=== PATIENT | female | born 1970 | race Caucasian/White ===

== ENCOUNTER 2020-08-08 08:20 | Inpatient (IN) | payer OTHER ==
[2020-08-08] MEDS ORDERED: ONDANSETRON 4 MG/2 ML VIAL ONE (09:13)
[2020-08-08] MEDS ORDERED: NA CHLORIDE 0.9% 500 ML ONE (09:13)
[2020-08-08] MEDS ORDERED: FAMOTIDINE 20 MG/2 ML VIAL IV ONE (09:14)
--- NOTE | 2020-08-08 09:25 | RAD REPORT ---
EXAM DESCRIPTION: RAD - Chest Single View - 08/08/2020 9:16 am CLINICAL HISTORY: DYSPNEA COMPARISON: None TECHNIQUE: AP portable chest image was obtained 08/08/2020 9:16 am . FINDINGS: No focal mass or consolidations seen. Interstitial fibrotic stranding is seen in each apex . No mass density at this time. No acute infiltrate. No failure or volume overload. Heart and vascula ture are normal. No measurable pleural effusion and no pneumothorax. No acute bony abnormality seen. No acute aortic findings suspected. IMPRESSION: Fibro emphysematous changes are present in the upper lung vivas, advanced for age. No mass, consolidation or failure.
[2020-08-08] MEDS ORDERED: THIAMINE 200 MG/2 ML INJ ONE (09:35)
[2020-08-08 09:44] LABS: Absolute Lymphocytes (CBC) 0.8 K/uL (0.7-4.9); Basophils % 0.6 % (0-1.3); Lymphocytes % 7.9 % (15.3-44.8); MPV 8.8 fL (7.6-11.3); RBC Red Blood Cell Count 3.89 M/uL (3.86-4.86)
[2020-08-08 10:04] LABS: ALT/SGPT 112 U/L (12-78); AST/SGOT 111 U/L (15-37); Albumin 3.5 g/dL (3.4-5.0); Alkaline Phosphatase 85 U/L (45-117); BUN Blood Urea Nitrogen 7 mg/dL (7-18); Bicarbonate 24 mmol/L (21-32); Bilirubin Direct 0.6 mg/dL (0-0.2); Bilirubin Total 1.5 mg/dL (0.2-1.0); Glucose Level 86 mg/dL (74-106); Lipase 11210 U/L (73-393); Magnesium 2.2 mg/dL (1.8-2.4); NT PRO-BNP 143 pg/mL (<125); Protein, Total 7.7 g/dL (6.4-8.2); Sodium Level 128 mmol/L (136-145); Troponin (Emerg Dept Use Only) < 0.02 ng/mL (0.0-0.045)
[2020-08-08 10:05] LABS: Potassium 2.1 mmol/L (3.5-5.1)
--- NOTE | 2020-08-08 10:18 | ER ---
Nurse's Notes [facility] Name: Marisa Mancilla Age: 50 yrs Sex: Female : 1970 Arrival Date: 08/08/2020 Time: 08:25 Bed 17 Private MD: Diagnosis: Acute pancreatitis;Abdominal tenderness;Alcohol abuse;Hypokalemia-hypophosphatemia Presentation: 08/08 08:26 Chief complaint: EMS states: N/V AND SOB x3 DAYS. Coronavirus screen: congestion, bp difficulty breathing, nausea, vomiting. Client presents with at least one sign or symptom that may indicate coronavirus-19. Standard/surgical mask placed on the client. Provider contacted for isolation considerations. Ebola Screen: No symptoms or risks identified at this time. Initial Sepsis Screen: Does the patient meet any 2 criteria? HR > 90 bpm. No. Patient's initial sepsis screen is negative. Does the patient have a suspected source of infection? No. Patient's initial sepsis screen is negative. Risk Assessment: Do you want to hurt yourself or someone else? Patient reports no desire to harm self or others. Onset of symptoms is unknown. Care prior to arrival: Medication(s) given: zofran 4 mg, IV initiated. 20 GA, in the right antecubital area, Glucose check: 114. 08:26 Method Of Arrival: EMS: [facility] bp 08:26 Acuity: DANIA 3 bp Triage Assessment: 08:28 General: Appears in no apparent distress. comfortable, Behavior is cooperative, bp appropriate for age, anxious. Pain: Denies pain. EENT: Reports nasal congestion. Neuro: Level of Consciousness is awake, alert, obeys commands, Oriented to person, place, time, situation, Appropriate for age. Cardiovascular: Rhythm is sinus rhythm. Respiratory: Reports shortness of breath cough that is productive, Breath sounds are clear bilaterally. GI: Abdomen is non-distended, Reports nausea, vomiting. : No signs and/or symptoms were reported regarding the genitourinary system. Derm: No deficits noted. Musculoskeletal: No deficits noted. Historical: - Allergies: 08:28 No Known Allergies; bp - Home Meds: 08:28 None [Active]; bp - PMHx: 08:28 None; bp - Immunization history:: Adult Immunizations unknown. - Social history:: Smoking status: Patient reports the use of cigarette tobacco products, smokes two packs cigarettes per day. - Family history:: not pertinent. Screenin:29 Abuse screen: Denies threats or abuse. Denies injuries from another. Nutritional bp screening: No deficits noted. Tuberculosis screening: No symptoms or risk factors identified. Fall Risk None identified. Assessment: 08:29 General: SEE TRIAGE NOTE. GI: Bowel sounds present X 4 quads. Reports nausea, vomiting. bp 09:15 Reassessment: Patient appears in no apparent distress at this time. Patient is alert, bp oriented x 3, equal unlabored respirations, skin warm/dry/pink. ALL CURRENT ORDERS COMPLETED. NO ACTIVE VOMITING. VS STABLE ON MONITOR. 09:15 GI: Abd is soft X 4 quads. bp 10:42 Reassessment: Patient appears in no apparent distress at this time. Patient is alert, bp oriented x 3, equal unlabored respirations, skin warm/dry/pink. PT RETURNED FROM CT. PT INCONTINENT TO URINE, STATES THIS IS RECENT BASELINE. 12:00 Reassessment: Patient appears in no apparent distress at this time. Patient and/or bp family updated on plan of care and expected duration. Pain level reassessed. Patient is alert, oriented x 3, equal unlabored respirations, skin warm/dry/pink. ADMIT MD AT B/S. 13:00 Reassessment: Patient appears in no apparent distress at this time. Patient and/or bp family updated on plan of care and expected duration. Pain level reassessed. Patient is alert, oriented x 3, equal unlabored respirations, skin warm/dry/pink. LAB CONTACTED FOR COVID RESULTS. ADMIT IN PROCESS. 14:15 Reassessment: ADMIT COMPLETE, PT [place] WITH PCT. bp Vital Signs: 08:26 BP 133 / 88; Pulse 100; Resp 17; Temp 97.5; Pulse Ox 99% ; bp 09:15 BP 125 / 91; Pulse 101; Resp 16; Pulse Ox 97% ; bp 10:42 BP 119 / 87; Pulse 103; Resp 17; Pulse Ox 100% on R/A; bp 13:00 BP 108 / 84; Pulse 95; Resp 17; Pulse Ox 100% ; bp 14:00 BP 104 / 77 Standing; Pulse 88; Resp 16; Temp 97.5; Pulse Ox 95% ; bp ED Course: 08:25 Patient arrived in ED. bp 08:27 Sathish Fontanez MD is Attending Physician. jade 08:27 Triage completed. bp 08:28 Arm band placed on. bp 08:29 Patient has correct armband on for positive identification. Bed in low position. Call bp light in reach. Side rails up X2. 08:29 Maintain EMS IV. Dressing intact. Good blood return noted. Site clean \T\ dry. Gauge \T\ bp site: 20 GAUGE R AC. 08:31 Misha Todd RN is Primary Nurse. bp 09:10 EKG done, by ED staff, reviewed by Sathish Fontanez MD. em1 09:16 XRAY Chest (1 view) In Process Unspecified. EDMS 10:15 Karoline Simmons MD is Hospitalizing Provider. jade 10:34 CT Abd/Pelvis - IV Contrast Only In Process Unspecified. EDMS 14:16 No provider procedures requiring assistance completed. Patient admitted, IV remains in bp place. Administered Medications: 09:00 Not Given (Duplicate Order): NS 0.9% 500 ml IV at bolus once jade 09:05 Drug: Thiamine 100 mg Route: IV; Rate: bolus; Site: right antecubital; bp 13:22 Follow up: IV Status: Completed infusion; IV Intake: 100ml bp 09:05 Drug: Zofran (Ondansetron) 4 mg Route: IVP; Site: right antecubital; bp 09:32 Follow up: Response: Nausea is decreased bp 09:05 Drug: NS 0.9% 1000 ml Route: IV; Rate: 1 bolus; Site: right antecubital; bp 13:23 Follow up: IV Status: Completed infusion bp 09:05 Drug: Pepcid 20 mg Route: IVP; Site: right antecubital; bp 09:32 Follow up: Response: Nausea is decreased bp 10:45 Drug: NS 0.9% 1000 ml Route: IV; Rate: 1 bolus; Site: right antecubital; bp 13:22 Follow up: IV Status: Completed infusion; IV Intake: 1000ml bp 10:45 Drug: Potassium Chloride 20 mEq Route: IV; Rate: per protocol; Site: right antecubital; bp 13:23 Follow up: IV Status: Completed infusion; IV Intake: 100ml bp 10:45 Drug: NS 0.9% with KCl 20 mEq/L 1000 ml Route: IV; Rate: 150 ml/hr; Site: right bp antecubital; 12:45 Drug: Potassium Chloride 20 mEq Route: IV; Rate: per protocol; Site: right antecubital; bp 13:11 Drug: Potassium Phosphate 15 mmol Route: IV; Rate: per protocol; Site: right bp antecubital; Intake: 13:22 IV: 1000ml; Total: 1000ml. bp 13:22 IV: 100ml; Total: 1100ml. bp 13:23 IV: 100ml; Total: 1200ml. bp Outcome: 10:17 Decision to Hospitalize by Provider. jade 14:17 Admitted to Tele accompanied by tech, via wheelchair, room 228, with chart, Report bp called to DEANA ARAIZA 14:17 Condition: stable 14:17 Instructed on the need for admit. 14:29 Patient left the ED. iw Signatures: Dispatcher [employer] Sathish Vasquez MD MD cha Williams, Irene, RN RN Jonathon Briones Misha Yang, RN RN bp
--- NOTE | 2020-08-08 10:18 | EDPHYS ---
Physician Documentation [facility] Name: Marisa Mancilla Age: 50 yrs Sex: Female : 1970 Arrival Date: 08/08/2020 Time: 08:25 Bed 17 Private MD: DUONG Physician Sathish Fontanez HPI: 08/08 09:00 This 50 yrs old Female presents to ER via EMS with complaints of jade Nausea/Vomiting, Shortness Of Breath. 09:00 The patient presents to the emergency department with nausea, vomiting, that is jade continuous. Onset: The symptoms/episode began/occurred 2 day(s) ago. Possible causes: unknown. The symptoms are aggravated by nothing. The symptoms are alleviated by nothing. Associated signs and symptoms: Pertinent positives: abdominal pain, nausea, vomiting. Severity of symptoms: At their worst the symptoms were mild in the emergency department the symptoms are unchanged. The patient has experienced similar episodes in the past, a few times. Historical: - Allergies: 08:28 No Known Allergies; bp - Home Meds: 08:28 None [Active]; bp - PMHx: 08:28 None; bp - Immunization history:: Adult Immunizations unknown. - Social history:: Smoking status: Patient reports the use of cigarette tobacco products, smokes two packs cigarettes per day. - Family history:: not pertinent. ROS: 09:00 Constitutional: Negative for fever, chills, and weight loss, Eyes: Negative for injury, jade pain, redness, and discharge, ENT: Negative for injury, pain, and discharge, Neck: Negative for injury, pain, and swelling, Cardiovascular: Negative for chest pain, palpitations, and edema, Back: Negative for injury and pain, : Negative for injury, bleeding, discharge, and swelling, MS/Extremity: Negative for injury and deformity, Skin: Negative for injury, rash, and discoloration, Neuro: Negative for headache, weakness, numbness, tingling, and seizure, Psych: Negative for depression, anxiety, suicide ideation, homicidal ideation, and hallucinations, Allergy/Immunology: Negative for hives, rash, and allergies, Endocrine: Negative for neck swelling, polydipsia, polyuria, polyphagia, and marked weight changes, Hematologic/Lymphatic: Negative for swollen nodes, abnormal bleeding, and unusual bruising. 09:00 Respiratory: Positive for cough, shortness of breath. 09:00 Abdomen/GI: Positive for abdominal pain, nausea and vomiting, abdominal cramps, of the epigastric area, right upper quadrant and left upper quadrant. Exam: 09:00 Constitutional: This is a well developed, well nourished patient who is awake, alert, jade and in no acute distress. Head/Face: Normocephalic, atraumatic. Eyes: Pupils equal round and reactive to light, extra-ocular motions intact. Lids and lashes normal. Conjunctiva and sclera are non-icteric and not injected. Cornea within normal limits. Periorbital areas with no swelling, redness, or edema. ENT: Nares patent. No nasal discharge, no septal abnormalities noted. Tympanic membranes are normal and external auditory canals are clear. Oropharynx with no redness, swelling, or masses, exudates, or evidence of obstruction, uvula midline. Mucous membranes moist. Neck: Trachea midline, no thyromegaly or masses palpated, and no cervical lymphadenopathy. Supple, full range of motion without nuchal rigidity, or vertebral point tenderness. No Meningismus. Chest/axilla: Normal chest wall appearance and motion. Nontender with no deformity. No lesions are appreciated. Cardiovascular: Regular rate and rhythm with a normal S1 and S2. No gallops, murmurs, or rubs. Normal PMI, no JVD. No pulse deficits. Respiratory: Lungs have equal breath sounds bilaterally, clear to auscultation and percussion. No rales, rhonchi or wheezes noted. No increased work of breathing, no retractions or nasal flaring. Back: No spinal tenderness. No costovertebral tenderness. Full range of motion. Female : Normal external genitalia. Skin: Warm, dry with normal turgor. Normal color with no rashes, no lesions, and no evidence of cellulitis. MS/ Extremity: Pulses equal, no cyanosis. Neurovascular intact. Full, normal range of motion. Neuro: Awake and alert, GCS 15, oriented to person, place, time, and situation. Cranial nerves II-XII grossly intact. Motor strength 5/5 in all extremities. Sensory grossly intact. Cerebellar exam normal. Normal gait. Psych: Awake, alert, with orientation to person, place and time. Behavior, mood, and affect are within normal limits. 09:00 Abdomen/GI: Inspection: abdomen appears normal, Bowel sounds: normal, Palpation: mild abdominal tenderness, in the epigastric area, right upper quadrant and left upper quadrant, Liver: no appreciated palpable abnormalities, Hernia: not appreciated. 10:18 ECG was reviewed by the Attending Physician. jade Vital Signs: 08:26 BP 133 / 88; Pulse 100; Resp 17; Temp 97.5; Pulse Ox 99% ; bp 09:15 BP 125 / 91; Pulse 101; Resp 16; Pulse Ox 97% ; bp 10:42 BP 119 / 87; Pulse 103; Resp 17; Pulse Ox 100% on R/A; bp 13:00 BP 108 / 84; Pulse 95; Resp 17; Pulse Ox 100% ; bp 14:00 BP 104 / 77 Standing; Pulse 88; Resp 16; Temp 97.5; Pulse Ox 95% ; bp MDM: 08:27 Patient medically screened. jade 09:02 Differential diagnosis: Nonspecific abd pain, gastritis, cholecystitis, pancreatitis, jade viral gastroenteritis, gastroenteritis. Data reviewed: vital signs, nurses notes, lab test result(s), EKG, radiologic studies, plain films. Data interpreted: security monitor: rate is 100 beats/min, Pulse oximetry: on room air is 99 %. Test interpretation: by ED physician or midlevel provider: ECG, plain radiologic studies. Counseling: I had a detailed discussion with the patient and/or guardian regarding: the historical points, exam findings, and any diagnostic results supporting the discharge/admit diagnosis, lab results, radiology results, the need for outpatient follow up. 08/08 08:55 Order name: Basic Metabolic Panel; Complete Time: 10:06 jade 08/08 08:55 Order name: CBC with Diff; Complete Time: 10:49 jade 08/08 08:55 Order name: LFT's; Complete Time: 10:06 jade 08/08 08:55 Order name: Magnesium; Complete Time: 10:06 jade 08/08 08:55 Order name: NT PRO-BNP; Complete Time: 10:06 jade 08/08 08:55 Order name: Troponin (emerg Dept Use Only); Complete Time: 10:06 jade 08/08 08:55 Order name: Flu; Complete Time: 10:49 jade 08/08 08:55 Order name: COVID-19 jade 08/08 09:01 Order name: Lipase; Complete Time: 10:06 EDMS 08/08 09:12 Order name: Alcohol Level; Complete Time: 10:06 [facility] 08/08 09:12 Order name: UDS; Complete Time: 10:49 [facility] 08/08 10:08 Order name: Phosphorus [facility] 08/08 11:25 Order name: Urine Dipstick--Ancillary (enter results) bd 08/08 11:32 Order name: Urinalysis EDMS 08/08 11:32 Order name: CBC with Automated Diff EDMS 08/08 11:32 Order name: CBC with Automated Diff EDMS 08/08 11:32 Order name: Comprehensive Metabolic Panel EDMS 08/08 11:32 Order name: Comprehensive Metabolic Panel EDMS 08/08 11:32 Order name: Lactate EDMS 08/08 11:32 Order name: Lactate EDMS 08/08 11:32 Order name: Lipid Profile EDMS 08/08 11:32 Order name: Lipid Profile EDMS 08/08 11:32 Order name: Magnesium EDMS 08/08 11:32 Order name: Magnesium EDMS 08/08 11:32 Order name: NT PRO-BNP EDMS 08/08 11:32 Order name: NT PRO-BNP EDMS 08/08 11:32 Order name: Phosphorus EDMS 08/08 11:32 Order name: Phosphorus EDMS 08/08 08:55 Order name: XRAY Chest (1 view); Complete Time: 10:06 [facility] 08/08 08:55 Order name: EKG; Complete Time: 08:56 [facility] 08/08 08:55 Order name: Cardiac monitoring; Complete Time: 09:11 [facility] 08/08 08:55 Order name: EKG - Nurse/Tech; Complete Time: 09:10 [facility] 08/08 08:55 Order name: IV Saline Lock; Complete Time: 09:10 [facility] 08/08 08:55 Order name: Labs collected and sent; Complete Time: 09:10 [facility] 08/08 08:55 Order name: O2 Per Protocol; Complete Time: 08:56 [facility] 08/08 08:55 Order name: O2 Sat Monitoring; Complete Time: 08:56 [facility] 08/08 10:08 Order name: CT Abd/Pelvis - IV Contrast Only; Complete Time: 10:49 [facility] 08/08 11:32 Order name: NPO EDAZ 08/08 11:32 Order name: Protime (+INR) EDAZ 08/08 11:32 Order name: Protime (+INR) EDMS 08/08 11:32 Order name: PTT, Activated Partial Thromb EDMS 08/08 11:32 Order name: PTT, Activated Partial Thromb EDMS 08/08 11:53 Order name: CORONAVIRUS EDMS 08/08 13:26 Order name: SARS-COV-2 RT PCR EDMS EC:18 Rate is 104 beats/min. Rhythm is regular. QRS [place] is Normal. CA interval is normal. jade QRS interval is normal. QT interval is normal. No Q waves. T waves are Normal. No ST changes noted. Clinical impression: Sinus tachycardia and No evidence of ischemia. Interpreted by me. Reviewed by me. Administered Medications: 09:00 Not Given (Duplicate Order): NS 0.9% 500 ml IV at bolus once jade 09:05 Drug: Thiamine 100 mg Route: IV; Rate: bolus; Site: right antecubital; bp 13:22 Follow up: IV Status: Completed infusion; IV Intake: 100ml bp 09:05 Drug: Zofran (Ondansetron) 4 mg Route: IVP; Site: right antecubital; bp 09:32 Follow up: Response: Nausea is decreased bp 09:05 Drug: NS 0.9% 1000 ml Route: IV; Rate: 1 bolus; Site: right antecubital; bp 13:23 Follow up: IV Status: Completed infusion bp 09:05 Drug: Pepcid 20 mg Route: IVP; Site: right antecubital; bp 09:32 Follow up: Response: Nausea is decreased bp 10:45 Drug: NS 0.9% 1000 ml Route: IV; Rate: 1 bolus; Site: right antecubital; bp 13:22 Follow up: IV Status: Completed infusion; IV Intake: 1000ml bp 10:45 Drug: Potassium Chloride 20 mEq Route: IV; Rate: per protocol; Site: right antecubital; bp 13:23 Follow up: IV Status: Completed infusion; IV Intake: 100ml bp 10:45 Drug: NS 0.9% with KCl 20 mEq/L 1000 ml Route: IV; Rate: 150 ml/hr; Site: right bp antecubital; 12:45 Drug: Potassium Chloride 20 mEq Route: IV; Rate: per protocol; Site: right antecubital; bp 13:11 Drug: Potassium Phosphate 15 mmol Route: IV; Rate: per protocol; Site: right bp antecubital; Disposition: 08/08/20 10:17 Hospitalization ordered by Karoline Simmons for Inpatient Admission. Preliminary diagnosis are Acute pancreatitis, Abdominal tenderness, Alcohol abuse, Hypokalemia - hypophosphatemia. - Bed requested for Telemetry/MedSurg (Inpatient). - Status is Inpatient Admission. iw - Condition is Stable. - Problem is new. - Symptoms are unchanged. Signatures: Dispatcher [employer] EDAZ Renita Sanchez RN RN kl Anderson, Corey, MD MD cha Williams, Irene, RN RN iw Peltier, Brian, RN RN bp Corrections: (The following items were deleted from the chart) 09:02 08:58 LIPASE+C.LAB.BRZ ordered. EDAZ EDMS 09:02 09:00 LIPASE+C.LAB.BRZ ordered. [facility] EDAZ 11:06 10:17 Hospitalization Ordered by Karolien Simmons MD for Inpatient Admission. Preliminary jade diagnosis is Acute pancreatitis; Abdominal tenderness; Alcohol abuse; Hypokalemia. Bed requested for Telemetry/MedSurg (Inpatient). Status is Inpatient Admission. Condition is Stable. Problem is new. Symptoms are unchanged. jade 13:32 11:06 08/08/2020 10:17 Hospitalization Ordered by Karoline Simmons MD for Inpatient kl Admission. Preliminary diagnosis is Acute pancreatitis; Abdominal tenderness; Alcohol abuse; Hypokalemia - hypophosphatemia. Bed requested for Telemetry/MedSurg (Inpatient). Status is Inpatient Admission. Condition is Stable. Problem is new. Symptoms are unchanged. jade 14:29 13:32 08/08/2020 10:17 Hospitalization Ordered by Karoline Simmons MD for Inpatient iw Admission. Preliminary diagnosis is Acute pancreatitis; Abdominal tenderness; Alcohol abuse; Hypokalemia - hypophosphatemia. Bed requested for Telemetry/MedSurg (Inpatient). Status is Inpatient Admission. Condition is Stable. Problem is new. Symptoms are unchanged. kl
--- NOTE | 2020-08-08 10:42 | RAD REPORT ---
EXAM DESCRIPTION: CT - Abdomen Pelvis W Contrast - 08/08/2020 10:34 am CLINICAL HISTORY: ABD PAIN COMPARISON: No comparisons TECHNIQUE: Biphasic, helical CT imaging of the abdomen and pelvis was performed following 100 ml non -ionic IV contrast. No oral contrast. All CT scans are performed using dose optimization technique as appropriate and may include automated exposure control or mA/KV adjustment according to patient size. FINDINGS: No suspicious findings in the lung bases. Pronounced fatty infiltration is present throughout the liver parenchyma. No focal liver lesion. No c apsular nodularity. No portal vein abnormality seen. Spleen and pancreas show no suspicious findings. Pancreatic parenchyma is homogeneous in attenuation and enhancement. Cholecystectomy clips are present. No biliary tree dilatation. Symmetric renal function is seen with no hydronephrosis or suspicious renal mass. No pyelonephritis o r acute parenchymal process. Urinary bladder is fully contracted. No evidence for a bladder stone. Ut erus and ovaries show no suspicious findings. There is laxity or prolapse along the pelvic floor. No adrenal abnormalities. No dilated bowel loops or bowel wall thickening. Appendix is normal. Left-sided colonic diverticulosi s is minimal with no diverticulitis. No active bowel process seen. No free air, free fluid or inflammatory stranding. No hernia, mass or bulky lymphadenopathy. No suspicious bony findings. Moderate severity degenerative change present at the L5-S1 facet joints. No acute vascular finding. IMPRESSION: Contrast enhanced CT abdomen and pelvis showing no acute or emergent finding. Nonacute findings detailed in the body of the report.
[2020-08-08 10:45] LABS: Barbiturates NEGATIVE (NEGATIVE); Benzodiazepines NEGATIVE (NEGATIVE); Cocaine NEGATIVE (NEGATIVE); METHAMPHETAM NEGATIVE (NEGATIVE); Methadone NEGATIVE (NEGATIVE); Opiates NEGATIVE (NEGATIVE); Phencyclidine NEGATIVE (NEGATIVE); THC Cannibis NEGATIVE (NEGATIVE)
[2020-08-08] MEDS ORDERED: KCL 20 MEQ/100 mL IVPB 20 MEQ/100 ML BAG IV ONE (10:50)
[2020-08-08] MEDS ORDERED: POTASSIUM 25 MEQ EFFERV TAB ONE (10:50)
[2020-08-08] MEDS ORDERED: NS KCL 20MEQ 1,000 ML IV ONE (10:50)
[2020-08-08] MEDS ORDERED: NA CHLORIDE 0.9% 1,000 ML ONE (11:02)
--- NOTE | 2020-08-08 11:27 | EKG ---
Test Date: 2020-08-08 Test Time: 09:10:02 Lay Out Helper: DOMENICA MEASUREMENT RESULTS: Intervals: Rate: 104 UT: 142 QRSD: 86 QT: 368 QTc: 483 [place]: P: 61 UT: 142 QRS: 68 T: 63 INTERPRETIVE STATEMENTS: Sinus tachycardia Otherwise normal ECG No previous ECG available for comparison Electronically Signed On 08-08-20 11:26:56 CDT by Vinicio Everett
[2020-08-08] MEDS ORDERED: ONDANSETRON 4 MG/2 ML VIAL IV PRN (11:28)
[2020-08-08] MEDS ORDERED: ACETAMINOPHEN 500 MG TAB PO PRN (11:28)
[2020-08-08] MEDS ORDERED: POTASSIUM PHOS IN 0.9 % NACL 15 MMOL/250 ML BAG IV ONE ×2 (11:30→21:00)
[2020-08-08 11:32] LABS: Urine Blood TRACE (NEG); Urine Glucose NEGATIVE (NEG); Urine Protein NEGATIVE (NEG)
[2020-08-08] MEDS ORDERED: NA CHLORIDE 0.9% 1,000 ML IV SCH (12:00)
[2020-08-08] MEDS: MORPHINE 4 MG/ML SYR IV PRN ×4 (12:00→23:34)
[2020-08-08] MEDS: NA CHLORIDE 0.9% 1,000 ML IV SCH ×4 (14:54→23:25)
[2020-08-08 15:08] VITALS: BMI 20.3
[2020-08-08 20:17] LABS: Phosphorus 0.7 mg/dL (2.5-4.9)
[2020-08-08] MEDS ORDERED: NICOTINE 21 MG/PAT TD PRN (22:00)
[2020-08-09] MEDS: MORPHINE 4 MG/ML SYR IV PRN ×5 (03:35→20:30)
[2020-08-09 05:29] LABS: Absolute Lymphocytes (CBC) 0.9 K/uL (0.7-4.9); Basophils % 0.5 % (0-1.3); Hematocrit 31.3 % (36.0-45.0); Lymphocytes % 11.2 % (15.3-44.8); MPV 8.1 fL (7.6-11.3); RBC Red Blood Cell Count 3.48 M/uL (3.86-4.86)
[2020-08-09 05:33] LABS: Protime INR 0.98
[2020-08-09] MEDS: NA CHLORIDE 0.9% 1,000 ML IV SCH ×4 (05:34→20:33)
[2020-08-09 05:48] LABS: ALT/SGPT 83 U/L (12-78); AST/SGOT 95 U/L (15-37); Albumin 2.7 g/dL (3.4-5.0); Alkaline Phosphatase 66 U/L (45-117); BUN Blood Urea Nitrogen 6 mg/dL (7-18); Bicarbonate 26 mmol/L (21-32); Bilirubin Total 0.9 mg/dL (0.2-1.0); Glucose Level 72 mg/dL (74-106); HDL Cholesterol 41 mg/dL (40-60); LDL Cholesterol, Calculated 56 (<130); Magnesium 1.8 mg/dL (1.8-2.4); NT PRO-BNP 585 pg/mL (<125); Phosphorus 1.5 mg/dL (2.5-4.9); Protein, Total 6.2 g/dL (6.4-8.2); Sodium Level 139 mmol/L (136-145)
[2020-08-09 05:52] LABS: Potassium 2.6 mmol/L (3.5-5.1)
[2020-08-09] MEDS: KCL 20 MEQ/100 mL IVPB 20 MEQ/100 ML BAG IV SCH ×4 (06:10→22:20)
[2020-08-09] MEDS: ENOXAPARIN 40 MG/0.4 ML SQ SCH (08:01)
[2020-08-09] MEDS: FOLIC ACID 1 MG, MULTIVITAMINS INJ 10 ML, THIAMINE HCL 100 MG in NA CHLORIDE 0.9% 1,000 ML IV SCH (08:01)
[2020-08-09 08:14] LABS: Urine Appearance CLEAR; Urine Blood NEGATIVE (NEG); Urine Color YELLOW; Urine Glucose NEGATIVE (NEG); Urine Protein NEGATIVE (NEG)
[2020-08-09 08:21] LABS: Urine Bilirubin 1+ (NEG); Urine Microscopic Reflex NO UMIC
[2020-08-09 09:00] LABS: Lipase 19749 U/L (73-393)
--- NOTE | 2020-08-09 09:00 | P.HP ---
Certification for Inpatient Patient admitted to: Inpatient With expected LOS: >2 Midnights Patient will require the following post-hospital care: None Practitioner: I am a practitioner with admitting privileges, knowledge of patient current condition, hospital course, and medical plan of care. Services: Services provided to patient in accordance with Admission requirements found in Title 42 Section 412.3 of the Code of Federal Regulations Patient History Date of Service: 08/08/20 Reason for admission: Acute alcoholic pancreatitis History of Present Illness: Patient is a 50-year-old female who states she has been drinking quite heavily over the last few months. She has had a lot of stressors in her life and this contributed to her increased alcohol use. She noticed she was having significant pain over the last 48 hr. Her pain continued to worsen so she came to the hospital for further evaluation. In the emergency room, workup revealed significantly elevated lipase level. CT scan finding did really show a lot of inflammation in the pancreas at this time. Concern is that it will progress. We will admit the patient because of her significantly elevated lipase level for inpatient setting. Will also monitor her for delirium tremens. Patient will be admitted to the hospital for further evaluation. Allergies No Known Allergies Allergy (Unverified 08/08/20 15:19) Home Medications: NK [No Home Meds] 08/08/20 - Past Medical/Surgical History Has patient received pneumonia vaccine in the past: No Diabetic: No -: Cholesystectomy -: Left wrist sx with Matal plate -: Left foot sx with metal cody - Family History Father Family History: Reviewed- Non-Contributory - Social History Smoking Status: Current every day smoker Alcohol use: Yes CD- Drugs: No Caffeine use: No Place of Residence: Home Review of Systems 10-point ROS is otherwise unremarkable Physical Examination - Vital Signs Temperature: 97.7 F Blood Pressure: 99/60 Pulse: 92 Respirations: 16 Pulse Ox (%): 95 - Physical Exam General: Alert, In no apparent distress, Oriented x3 HEENT: Atraumatic, PERRLA, Mucous membr. moist/pink, EOMI, Sclerae nonicteric Neck: Supple, 2+ carotid pulse no bruit, No LAD, Without JVD or thyroid abnormality Respiratory: Clear to auscultation bilaterally, Normal air movement Cardiovascular: Regular rate/rhythm, Normal S1 S2, No murmurs Gastrointestinal: Normal bowel sounds, Soft and benign, Non-distended, Tenderness, Rebound, Guarding Musculoskeletal: No clubbing, No swelling, No tenderness Integumentary: No rashes Neurological: Normal gait, Normal speech, Normal strength at 5/5 x4 extr, Normal tone, Sensation intact, Cranial nerves 3-12 intact, Normal affect Lymphatics: No axilla or inguinal lymphadenopathy - Studies Laboratory Data (last 24 hrs) 08/08/20 10:20: Phosphorus 0.9 L* 08/08/20 09:10: WBC 10.2, Hgb 12.7, Hct 35.0 L, Plt Count 218 08/08/20 09:10: Sodium 128 L, Potassium 2.1 L*, BUN 7, Creatinine 0.75, Glucose 86, Magnesium 2.2, Total Bilirubin 1.5 H, AST 111 H, ALT 112 H, Alkaline Phosphatase 85, Lipase 09698 H 08/08/20 08:59: Lipase Cancelled 08/08/20 08:57: Lipase Cancelled Microbiology Data (last 24 hrs): 08/08/20 09:10 Nasopharnyx Influenza Type A Antigen Screen - Final 08/08/20 09:10 Nasopharnyx Influenza Type B Antigen Screen - Final Assessment & Plan - Problems (Diagnosis) (1) Acute alcoholic pancreatitis Current Visit: Yes Status: Acute (2) Hypokalemia Current Visit: Yes Status: Acute (3) Hypophosphatemia Current Visit: Yes Status: Acute - Plan Plan: 1. IV fluids 2. Pain control 3. PPI 4. Monitor for DTs 5. NPO 6. Repeat lipase levels as well as repeat electrolytes 7. Banana bag x1 L daily 8. GI and DVT prophylaxis Discharge Plan: Home Plan to discharge in: Greater than 2 days - Advance Directives Does patient have a Living Will: No Does patient have a Durable POA for Healthcare: No - Code Status/Comfort Care Code Status Assessed: Yes Code Status: Full Code Critical Care: No Time Spent Managing PTS Care (In Minutes): 45
--- NOTE | 2020-08-09 09:01 | P.PN ---
Subjective Date of Service: 08/09/20 Subjective: No new changes, No C/O voiced, Improving Her abdomen is slightly more distended today. She still is having some epigastric tenderness. No nausea and vomiting. Will check a lipase level and start clear liquid diet today if is improved. Otherwise will start ice chips. Review of Systems 10-point ROS is otherwise unremarkable Physical Examination - Vital Signs Temperature: 97.7 F Blood Pressure: 99/60 Pulse: 92 Respirations: 16 Pulse Ox (%): 95 - Physical Exam General: Alert, In no apparent distress, Oriented x3 HEENT: Atraumatic, PERRLA, EOMI Neck: Supple, JVD not distended Respiratory: Clear to auscultation bilaterally, Normal air movement Cardiovascular: Regular rate/rhythm, Normal S1 S2 Gastrointestinal: Normal bowel sounds, No tenderness Musculoskeletal: No tenderness Integumentary: No rashes Neurological: Normal speech, Normal tone, Normal affect Lymphatics: No axilla or inguinal lymphadenopathy - Studies Laboratory Data (last 24 hrs) 08/08/20 10:20: Phosphorus 0.9 L* 08/08/20 09:10: WBC 10.2, Hgb 12.7, Hct 35.0 L, Plt Count 218 08/08/20 09:10: Sodium 128 L, Potassium 2.1 L*, BUN 7, Creatinine 0.75, Glucose 86, Magnesium 2.2, Total Bilirubin 1.5 H, AST 111 H, ALT 112 H, Alkaline Phosphatase 85, Lipase 10340 H 08/08/20 08:59: Lipase Cancelled 08/08/20 08:57: Lipase Cancelled Microbiology Data (last 24 hrs): 08/08/20 09:10 Nasopharnyx Influenza Type A Antigen Screen - Final 08/08/20 09:10 Nasopharnyx Influenza Type B Antigen Screen - Final Medications List Reviewed: Yes Assessment & Plan - Problems (Diagnosis) (1) Acute alcoholic pancreatitis Current Visit: Yes Status: Acute (2) Hypokalemia Current Visit: Yes Status: Acute (3) Hypophosphatemia Current Visit: Yes Status: Acute - Plan Plan: 1. Continue with IV fluids 2. Continue with Pain control 3. Continue with PPI twice a day 4. Monitor for DTs; continue with Librium 5. Start ice chips and then clear liquids if lipase continues to improve 6. Repeat lipase was elevated this morning but it has decreased; start ice chips 7. Banana bag x1 L daily 8. GI and DVT prophylaxis Discharge Plan: Home Plan to discharge in: Greater than 2 days - Advance Directives Does patient have a Living Will: No Does patient have a Durable POA for Healthcare: No - Code Status/Comfort Care Code Status: Full Code Critical Care: No Time Spent Managing PTS Care (In Minutes): 35
[2020-08-09] MEDS ORDERED: POTASSIUM PHOS IN 0.9 % NACL 15 MMOL/250 ML BAG IV ONE (11:00)
[2020-08-09] MEDS: chlordiazePOXIDE HCl 5 MG CAP PO SCH ×3 (14:38→23:24)
[2020-08-09 15:26] LABS: Absolute Lymphocytes (CBC) 1.3 K/uL (0.7-4.9); Basophils % 0.7 % (0-1.3); Hematocrit 29.7 % (36.0-45.0); Lymphocytes % 16.8 % (15.3-44.8); MPV 7.7 fL (7.6-11.3); RBC Red Blood Cell Count 3.29 M/uL (3.86-4.86)
[2020-08-09 15:54] LABS: BUN Blood Urea Nitrogen 5 mg/dL (7-18); Bicarbonate 26 mmol/L (21-32); Glucose Level 76 mg/dL (74-106); Lipase 10000 U/L (73-393); Magnesium 2.2 mg/dL (1.8-2.4); Phosphorus 2.3 mg/dL (2.5-4.9); Potassium 3.1 mmol/L (3.5-5.1); Sodium Level 138 mmol/L (136-145)
[2020-08-09] MEDS ORDERED: MAGNESIUM SULFATE 1 gm IVPB 1 GM/100 ML BAG IV ONE (16:00)
[2020-08-09] MEDS ORDERED: NICOTINE 21 MG/PAT TD ONE (21:00)
[2020-08-10] MEDS: MORPHINE 4 MG/ML SYR IV PRN ×4 (00:49→15:39)
[2020-08-10] MEDS: NA CHLORIDE 0.9% 1,000 ML IV SCH ×5 (03:05→22:14)
[2020-08-10] MEDS: chlordiazePOXIDE HCl 5 MG CAP PO SCH ×4 (05:00→23:16)
[2020-08-10 06:20] LABS: BUN Blood Urea Nitrogen 4 mg/dL (7-18); Bicarbonate 25 mmol/L (21-32); Glucose Level 67 mg/dL (74-106); Lipase 4466 U/L (73-393); Magnesium 1.8 mg/dL (1.8-2.4); Phosphorus 1.9 mg/dL (2.5-4.9); Sodium Level 135 mmol/L (136-145)
[2020-08-10 06:23] LABS: Potassium 2.8 mmol/L (3.5-5.1)
[2020-08-10] MEDS: KCL 20 MEQ/100 mL IVPB 20 MEQ/100 ML BAG IV SCH ×4 (06:40→22:15)
--- NOTE | 2020-08-10 07:50 | P.PN ---
Subjective Date of Service: 08/10/20 Patient continues to slightly improved. No new complaints. Physical Examination - Vital Signs Temperature: 97.7 F Blood Pressure: 99/60 Pulse: 92 Respirations: 16 Pulse Ox (%): 95 - Physical Exam General: Alert, In no apparent distress, Oriented x3 Respiratory: Clear to auscultation bilaterally, Normal air movement Cardiovascular: Regular rate/rhythm, Normal S1 S2 Gastrointestinal: Normal bowel sounds, Soft and benign, Distended, Tenderness Musculoskeletal: No clubbing, No swelling - Studies Medications List Reviewed: Yes Assessment & Plan - Problems (Diagnosis) (1) Acute alcoholic pancreatitis Current Visit: Yes Status: Acute (2) Hypokalemia Current Visit: Yes Status: Acute (3) Hypophosphatemia Current Visit: Yes Status: Acute - Plan Plan: Continue with plan of care as mentioned below: 1. Continue with IV fluids 2. Continue with Pain control 3. Continue with PPI 4. Monitor for DTs; continue with Librium 5. Advance diet if pain continues to improve and lipase is stable 6. GI and DVT prophylaxis Discharge Plan: Home Plan to discharge in: 48 Hours - Advance Directives Does patient have a Living Will: No Does patient have a Durable POA for Healthcare: No - Code Status/Comfort Care Code Status: Full Code Critical Care: No Time Spent Managing PTS Care (In Minutes): 35
[2020-08-10] MEDS: FOLIC ACID 1 MG, MULTIVITAMINS INJ 10 ML, THIAMINE HCL 100 MG in NA CHLORIDE 0.9% 1,000 ML IV SCH (08:42)
[2020-08-10] MEDS: ENOXAPARIN 40 MG/0.4 ML SQ SCH (08:42)
[2020-08-10] MEDS ORDERED: POTASSIUM PHOS IN 0.9 % NACL 15 MMOL/250 ML BAG IV ONE (11:00)
[2020-08-10] MEDS ORDERED: MAGNESIUM SULFATE 1 gm IVPB 1 GM/100 ML BAG IV ONE (15:00)
[2020-08-11] MEDS: NA CHLORIDE 0.9% 1,000 ML IV SCH ×3 (05:38→20:35)
[2020-08-11] MEDS: chlordiazePOXIDE HCl 5 MG CAP PO SCH ×4 (05:39→23:40)
[2020-08-11 06:40] LABS: BUN Blood Urea Nitrogen 2 mg/dL (7-18); Bicarbonate 25 mmol/L (21-32); Glucose Level 87 mg/dL (74-106); Magnesium 2.2 mg/dL (1.8-2.4); Potassium 3.5 mmol/L (3.5-5.1); Sodium Level 140 mmol/L (136-145)
[2020-08-11] MEDS ORDERED: POTASSIUM PHOS IN 0.9 % NACL 15 MMOL/250 ML BAG IV ONE (08:00)
[2020-08-11] MEDS: FOLIC ACID 1 MG, MULTIVITAMINS INJ 10 ML, THIAMINE HCL 100 MG in NA CHLORIDE 0.9% 1,000 ML IV SCH (09:34)
[2020-08-11] MEDS: ENOXAPARIN 40 MG/0.4 ML SQ SCH (09:34)
[2020-08-11] MEDS: MORPHINE 4 MG/ML SYR IV PRN ×3 (09:34→19:28)
[2020-08-12] MEDS: MORPHINE 4 MG/ML SYR IV PRN ×5 (00:04→22:23)
[2020-08-12] MEDS: chlordiazePOXIDE HCl 5 MG CAP PO SCH ×3 (05:04→17:59)
[2020-08-12] MEDS: NA CHLORIDE 0.9% 1,000 ML IV SCH ×4 (05:05→22:22)
[2020-08-12 07:04] LABS: BUN Blood Urea Nitrogen 1 mg/dL (7-18); Bicarbonate 28 mmol/L (21-32); Glucose Level 121 mg/dL (74-106); Sodium Level 140 mmol/L (136-145)
[2020-08-12 07:06] LABS: Potassium 2.9 mmol/L (3.5-5.1)
--- NOTE | 2020-08-12 07:10 | P.PN ---
Subjective Date of Service: 08/11/20 Patient did have more pain with her diet. Overall though clinically she does appear to be slowly improving. Lipase is down to 3000s. Anticipate discharge home over the next 48 hrs. Review of Systems 10-point ROS is otherwise unremarkable Physical Examination - Vital Signs Temperature: 98.0 F Blood Pressure: 111/73 Pulse: 89 Respirations: 18 Pulse Ox (%): 95 - Physical Exam General: Alert, In no apparent distress, Oriented x3 Respiratory: Clear to auscultation bilaterally, Normal air movement Cardiovascular: Regular rate/rhythm, Normal S1 S2, No murmurs Gastrointestinal: Normal bowel sounds, Soft and benign, Non-distended, No tenderness Musculoskeletal: No clubbing, No swelling, No tenderness Neurological: Sensation intact, Cranial nerves 3-12 intact - Studies Medications List Reviewed: Yes Assessment & Plan - Problems (Diagnosis) (1) Acute alcoholic pancreatitis Current Visit: Yes Status: Acute (2) Hypokalemia Current Visit: Yes Status: Acute (3) Hypophosphatemia Current Visit: Yes Status: Acute - Plan Plan: Continue with plan of care as mentioned below: 1. Will go ahead and decrease IV fluids. Symptoms are improving. Will go ahead and advance her diet and see how she tolerates it. Repeat lipase level. Still in the 3000. If her symptoms worsen and will need to hold discharge. Reassess in the morning. Continue with Librium for DTs. Slowly wean this off as well. Do oral multi-vitamins as well as thiamine, folic acid, and B12. Anticipate discharge home or the next 24-48 hr as long as she tolerates her diet and her labs are improving. - Advance Directives Does patient have a Living Will: No Does patient have a Durable POA for Healthcare: No - Code Status/Comfort Care Code Status: Full Code
[2020-08-12 07:28] LABS: Lipase 4304 U/L (73-393)
[2020-08-12] MEDS: ENOXAPARIN 40 MG/0.4 ML SQ SCH (07:37)
[2020-08-12] MEDS ORDERED: POTASSIUM 25 MEQ EFFERV TAB PO ONE (08:00)
[2020-08-12] MEDS: FOLIC ACID 1 MG, MULTIVITAMINS INJ 10 ML, THIAMINE HCL 100 MG in NA CHLORIDE 0.9% 1,000 ML IV SCH (08:41)
[2020-08-12] MEDS ORDERED: POTASSIUM CL SA 10 MEQ TAB PO ONE (11:00)
[2020-08-13] MEDS: chlordiazePOXIDE HCl 5 MG CAP PO SCH ×4 (00:10→17:19)
[2020-08-13] MEDS: NA CHLORIDE 0.9% 1,000 ML IV SCH (05:37)
[2020-08-13 06:02] LABS: Absolute Lymphocytes (CBC) 1.2 K/uL (0.7-4.9); Basophils % 0.9 % (0-1.3); Hematocrit 27.6 % (36.0-45.0); Lymphocytes % 20.7 % (15.3-44.8); MPV 7.3 fL (7.6-11.3); RBC Red Blood Cell Count 2.99 M/uL (3.86-4.86)
[2020-08-13 06:31] LABS: Albumin 2.1 g/dL (3.4-5.0); Bilirubin Total 0.4 mg/dL (0.2-1.0); Phosphorus 3.9 mg/dL (2.5-4.9); Potassium 3.3 mmol/L (3.5-5.1); Protein, Total 5.7 g/dL (6.4-8.2)
--- NOTE | 2020-08-13 06:34 | P.PN ---
Subjective Date of Service: 08/12/20 patient was having some more pain in her epigastric region. Her lipase level did go up. I went ahead and we will change her to an ice chips diet. Hopefully we can give her some food in the morning if her lipase level continues to trend downward. Her volume status is stable and her renal function is stable. Overall, she is doing much better. She is probably out of the window for DTs but will continue to monitor closely. Review of Systems 10-point ROS is otherwise unremarkable Physical Examination - Vital Signs Temperature: 97.5 F Blood Pressure: 100/65 Pulse: 91 Respirations: 18 Pulse Ox (%): 90 - Physical Exam General: Alert, In no apparent distress, Oriented x3 HEENT: Atraumatic, PERRLA, EOMI Neck: Supple, JVD not distended Respiratory: Clear to auscultation bilaterally, Normal air movement Cardiovascular: Regular rate/rhythm, Normal S1 S2, No murmurs Gastrointestinal: Normal bowel sounds, Soft and benign, No rebound, No guarding, Distended, Tenderness Musculoskeletal: No clubbing, No swelling, No tenderness Integumentary: No rashes Neurological: Normal strength at 5/5 x4 extr, Normal tone, Sensation intact, Cranial nerves 3-12 intact - Studies Medications List Reviewed: Yes Assessment & Plan - Problems (Diagnosis) (1) Acute alcoholic pancreatitis Current Visit: Yes Status: Acute (2) Hypokalemia Current Visit: Yes Status: Acute (3) Hypophosphatemia Current Visit: Yes Status: Acute - Plan Plan: Continue with plan of care as mentioned below: 1. Will go ahead and decrease IV fluids. Symptoms were improving, we advanced her diet at her request, and see is having some more discomfort.. Repeat lipase level was more elevated than yesterday. Will put her on ice chips for now. Repeat lipase level in the morning. Reassess in the morning. Continue with Librium for DTs. Slowly wean this off as well. Do oral multi-vitamins as well as thiamine, folic acid, and B12. Anticipate discharge home or the next 24-48 hr as long as she tolerates her diet and her labs are improving. Discharge Plan: Home Plan to discharge in: 48 Hours - Advance Directives Does patient have a Living Will: No Does patient have a Durable POA for Healthcare: No - Code Status/Comfort Care Code Status: Full Code Critical Care: No Time Spent Managing PTS Care (In Minutes): 30
[2020-08-13 07:40] LABS: Blood Morphology Comment NOT SEEN (NOT SEEN); Platelet Estimate ADEQ; White Blood Cell Scan OK (OK)
[2020-08-13] MEDS ORDERED: POTASSIUM 25 MEQ EFFERV TAB PO ONE (08:00)
[2020-08-13] MEDS ORDERED: KCL 20 MEQ/100 mL IVPB 20 MEQ/100 ML BAG IV SCH (08:00)
[2020-08-13] MEDS: FOLIC ACID 1 MG, MULTIVITAMINS INJ 10 ML, THIAMINE HCL 100 MG in NA CHLORIDE 0.9% 1,000 ML IV SCH (08:15)
[2020-08-13] MEDS: ENOXAPARIN 40 MG/0.4 ML SQ SCH (08:16)
[2020-08-13] MEDS ORDERED: chlordiazePOXIDE HCl 5 MG CAP PO SCH (11:52)
[2020-08-13] MEDS ORDERED: TRAMADOL HCL 50 MG TAB PO PRN (11:52)
[2020-08-13] MEDS ORDERED: MORPHINE 2 MG/ML SYR IV PRN (11:53)
--- NOTE | 2020-08-13 12:00 | P.PN ---
Subjective Date of Service: 08/13/20 Chief Complaint: Acute alcoholic pancreatitis Subjective: Improving, Other (Patient reports less abdominal pain. Patient desires something to eat) Physical Examination - Vital Signs Temperature: 98.3 F Blood Pressure: 132/67 Pulse: 85 Respirations: 20 Pulse Ox (%): 92 - Physical Exam General: Alert, In no apparent distress, Oriented x3, Cooperative HEENT: Atraumatic Neck: Supple Respiratory: Clear to auscultation bilaterally, Normal air movement Cardiovascular: Normal pulses, Regular rate/rhythm Gastrointestinal: Normal bowel sounds, No tenderness, No masses, No rebound, No guarding Musculoskeletal: No erythema, No tenderness, No warmth Integumentary: No tenderness/swelling, No erythema, No warmth, No cyanosis Neurological: Normal speech, Normal strength at 5/5 x4 extr, Normal tone, Normal affect - Studies Medications List Reviewed: Yes Assessment & Plan Discharge Plan: Home Plan to discharge in: 24 Hours Physician Review Additional Text: Impression: Abdominal pain, nausea vomiting secondary to alcoholic pancreatitis with hypokalemia, hypokalemia, hypophosphotemia Alcohol abuse Tobacco abuse Elevated liver function likely related to above/alcohol abuse/fatty liver Plan: Abdominal pain, nausea vomiting secondary to alcoholic pancreatitis with hypokal emia, hypokalemia, hypophosphotemia: Continue IV fluids but will adjust accordingly. Will change IV folic acid and thiamine to oral. Will advance diet to clear liquid diet at this time then advance to soft later today if tolerates diet. Continue to monitor lipase. Lipase seems to have improved. Continue to replace electrolytes and monitor closely. Electrolyte protocol in place. Encourage alcohol cessation. Patient understands this. Patient currently on Librium. Will hold if with increase sedation. Patient plans to quit alcohol. Anticipate improvement over the next 24-48 hr. With possible discharge as early as tomorrow. Alcohol abuse: Alcohol cessation education addressed in detail. Patient plans to quit. She understands the risk of continued use. Tobacco abuse: Continue with nicotine patch. Elevated liver function likely related to above/alcohol abuse/fatty liver: Continue IV fluids. Renal function has improved back to baseline. Continue to address lifestyle modification. Time Spent Managing Pts Care (In Minutes): 55
[2020-08-13] MEDS: NACHLORIDE 0.45% 1,000 ML IV SCH ×3 (12:21→22:43)
[2020-08-13] MEDS: HYDROCODONE/APAP 7.5/325 MG TAB PO PRN (17:24)
[2020-08-14] MEDS: chlordiazePOXIDE HCl 5 MG CAP PO SCH ×2 (00:03→05:19)
[2020-08-14] MEDS: HYDROCODONE/APAP 7.5/325 MG TAB PO PRN ×2 (00:50→19:57)
[2020-08-14 04:55] LABS: Albumin 2.1 g/dL (3.4-5.0); Bilirubin Total 0.3 mg/dL (0.2-1.0); Potassium 3.1 mmol/L (3.5-5.1); Protein, Total 5.8 g/dL (6.4-8.2)
[2020-08-14] MEDS ORDERED: POTASSIUM CL SA 10 MEQ TAB PO ONE ×2 (04:59→21:00)
[2020-08-14] MEDS: NACHLORIDE 0.45% 1,000 ML IV SCH ×4 (05:17→22:25)
[2020-08-14] MEDS: ENOXAPARIN 40 MG/0.4 ML SQ SCH (07:59)
[2020-08-14] MEDS: THIAMINE HCL 100 MG TABLET PO SCH (07:59)
[2020-08-14] MEDS: FOLIC ACID 1 MG TABLET PO SCH (07:59)
--- NOTE | 2020-08-14 08:10 | P.PN ---
Subjective Date of Service: 08/14/20 Chief Complaint: Acute alcoholic pancreatitis Subjective: Improving, Other (Patient feels better overall.) Physical Examination - Vital Signs Temperature: 98.2 F Blood Pressure: 117/76 Pulse: 70 Respirations: 16 Pulse Ox (%): 94 - Physical Exam General: Alert, In no apparent distress, Oriented x3, Cooperative HEENT: Atraumatic Neck: Supple Respiratory: Clear to auscultation bilaterally, Normal air movement Cardiovascular: Normal pulses, Regular rate/rhythm Gastrointestinal: Normal bowel sounds, Soft and benign, Non-distended, No masses, No rebound, No guarding, Tenderness (No significant pain noted. Pain overall improved) Neurological: Normal speech, Normal strength at 5/5 x4 extr, Normal tone, Normal affect - Studies Medications List Reviewed: Yes Assessment & Plan Discharge Plan: Home Plan to discharge in: 24 Hours Physician Review Additional Text: Impression: Abdominal pain, nausea vomiting secondary to alcoholic pancreatitis with hypokalemia, hypokalemia, hypophosphotemia Alcohol abuse Tobacco abuse Elevated liver function likely related to above/alcohol abuse/fatty liver Plan: Abdominal pain, nausea vomiting secondary to alcoholic pancreatitis with hypokalemia, hypokalemia, hypophosphotemia: Patient overall improved. Lipase slightly improved but still around 3000. Continue IV fluids. Continue to replace electrolytes. Continue folic acid and thiamine. Continue to educate on alcohol cessation. Address the risk of continued use. Patient tolerating diet at this time. Will discontinue Librium. Discontinue IV pain medication. Will reassess for possible discharge as early as later today but likely tomorrow. Alcohol abuse: Alcohol cessation education addressed in detail. Patient plans to quit. She understands the risk of continued use. Tobacco abuse: Continue with nicotine patch. Elevated liver function likely related to above/alcohol abuse/fatty liver: Continue IV fluids. Liver function has improved back to baseline. Continue to address lifestyle modification. Time Spent Managing Pts Care (In Minutes): 55
[2020-08-14] MEDS ORDERED: LORAZEPAM 0.5 MG TABLET PO PRN (08:11)
[2020-08-15 01:04] VITALS: O2SAT 96
[2020-08-15] MEDS: NACHLORIDE 0.45% 1,000 ML IV SCH ×2 (06:04→12:00)
[2020-08-15 06:16] LABS: Albumin 2.4 g/dL (3.4-5.0); Bilirubin Total 0.3 mg/dL (0.2-1.0); Potassium 3.5 mmol/L (3.5-5.1); Protein, Total 6.8 g/dL (6.4-8.2)
[2020-08-15] MEDS: FOLIC ACID 1 MG TABLET PO SCH (07:28)
[2020-08-15] MEDS: THIAMINE HCL 100 MG TABLET PO SCH (07:28)
[2020-08-15] MEDS: ENOXAPARIN 40 MG/0.4 ML SQ SCH (07:28)
[2020-08-15] MEDS ORDERED: POTASSIUM CL SA 10 MEQ TAB PO ONE (09:00)
--- NOTE | 2020-08-15 09:03 | P.DS ---
Admission Date: 08/08/20 Discharge Date: 08/15/20 Primary Care Provider: none Disposition: ROUTINE DISCHARGE Discharge Condition: GOOD Reason for Admission: Acute alcoholic pancreatitis Consultations: None Procedures: CT Scan: FINDINGS: No suspicious findings in the lung bases. Pronounced fatty infiltration is present throughout the liver parenchyma. No focal liver lesion. No capsular nodularity. No portal vein abnormality seen. Spleen and pancreas show no suspicious findings. Pancreatic parenchyma is homogeneous in attenuation and enhancement. Cholecystectomy clips are present. No biliary tree dilatation. Symmetric renal function is seen with no hydronephrosis or suspicious renal mass. No pyelonephritis or acute parenchymal process. Urinary bladder is fully contracted. No evidence for a bladder stone. Uterus and ovaries show no suspicious findings. There is laxity or prolapse along the pelvic floor. No adrenal abnormalities. No dilated bowel loops or bowel wall thickening. Appendix is normal. Left-sided colonic diverticulosis is minimal with no diverticulitis. No active bowel process seen. No free air, free fluid or inflammatory stranding. No hernia, mass or bulky lymphadenopathy. No suspicious bony findings. Moderate severity degenerative change present at the L5-S1 facet joints. No acute vascular finding. IMPRESSION: Contrast enhanced CT abdomen and pelvis showing no acute or emergent finding. Nonacute findings detailed in the body of the report. Medical Problem List: Abdominal pain, nausea vomiting secondary to alcoholic pancreatitis with hypokalemia, hypokalemia, hypophosphotemia Alcohol abuse Tobacco abuse Elevated liver function likely related to above/alcohol abuse/fatty liver GERD Brief History of Present Illness: 50-year-old female with history of alcohol abuse. Patient presented with increasing nausea, vomiting and epigastric abdominal pain. Patient found to have acute pancreatitis. CT scan showed no mass or significant inflammation. Lipase level was greater than 10,000. Patient admitted for further evaluation and treatment. Initial urine drug screen and alcohol level were unremarkable. Hospital Course: Patient presented with abdominal pain, nausea and vomiting. This was secondary to alcoholic pancreatitis. Patient also had high pony tree me a, hypokalemia and hypophosphatemia. This was likely related to her alcohol abuse. Triglyceride level unremarkable. CT scan showed no significant mass or significant inflammation but lipase levels were greater than 10,000. During the course of her stay her condition improved. Her diet was advanced slowly. At discharge she is without significant nausea, vomiting and abdominal pain. Lipase levels now in the 2000 range. Case discussed with GI. No significant intervention required at this time. Patient has been counseled extensively on the importance of alcohol cessation. Patient understands the risks and recurrent pancreatitis if she continues. Patient plans to quit. At discharge patient without significant nausea, vomiting or abdominal pain. She will continue with folic acid 1 mg daily and thiamine 100 mg daily. At discharge continue with alcohol cessation. Recommend to establish care with GI in the future to follow up this hospitalization. Recommend to recheck lab-CMP with lipase level in 1-2 weeks monitor resolution of elevated lipase level. Education on pancreatitis, alcohol cessation addressed in detail. Patient also with history of tobacco abuse. Patient was given nicotine patch. Recommend to continue nicotine cessation. Nicotine patch will be provided at discharge. Patient with elevated liver function initially. This was likely related to her alcohol abuse. CT scan did reveal mild fatty liver. This has improved and the liver function test now back to baseline. Will provide education on fatty liver. As mentioned above recommend to discontinue alcohol entirely. Patient may have underlying GERD. At discharge patient will continue with Protonix 40 mg daily. Recommend follow up with GI as an outpatient to further evaluate and treat. Patient may require EGD in the future to further evaluate. Vital Signs/Physical Exam: Temp Pulse Resp BP Pulse Ox 97.9 F 104 H 18 135/90 96 08/15/20 08:00 08/15/20 08:00 08/15/20 08:00 08/15/20 08:00 08/15/20 08:00 General: Alert, In no apparent distress, Oriented x3, Cooperative HEENT: Atraumatic Neck: Supple Respiratory: Clear to auscultation bilaterally, Normal air movement Cardiovascular: Normal pulses, Regular rate/rhythm Gastrointestinal: Normal bowel sounds, Soft and benign, Non-distended, No ascites, No tenderness, No masses, No rebound, No guarding Musculoskeletal: No erythema, No tenderness, No warmth Integumentary: No tenderness/swelling, No erythema, No warmth, No cyanosis Neurological: Normal speech, Normal strength at 5/5 x4 extr, Normal tone, Normal affect Laboratory Data at Discharge: WBC 5.7 K/uL (4.3-10.9) D 08/13/20 05:38 Hgb 9.9 g/dL (12.0-15.0) L 08/13/20 05:38 Hct 27.6 % (36.0-45.0) L 08/13/20 05:38 Plt Count 264 K/uL (152-406) D 08/13/20 05:38 PT 11.6 SECONDS (9.5-12.5) 08/09/20 05:14 INR 0.98 08/09/20 05:14 APTT 22.8 SECONDS (24.3-36.9) L 08/09/20 05:14 Sodium 141 mmol/L (136-145) 08/15/20 05:17 Potassium 3.5 mmol/L (3.5-5.1) 08/15/20 05:17 BUN 2 mg/dL (7-18) L 08/15/20 05:17 Creatinine 0.87 mg/dL (0.55-1.3) 08/15/20 05:17 Glucose 92 mg/dL (74-106) 08/15/20 05:17 Phosphorus 3.9 mg/dL (2.5-4.9) D 08/13/20 05:38 Magnesium 2.2 mg/dL (1.8-2.4) 08/11/20 05:15 Total Bilirubin 0.3 mg/dL (0.2-1.0) 08/15/20 05:17 AST 40 U/L (15-37) H 08/15/20 05:17 ALT 45 U/L (12-78) 08/15/20 05:17 Alkaline Phosphatase 82 U/L (45-117) 08/15/20 05:17 Triglycerides 68 mg/dL (<150) 08/09/20 05:14 Cholesterol 111 mg/dL (<200) 08/09/20 05:14 HDL Cholesterol 41 mg/dL (40-60) 08/09/20 05:14 Cholesterol/HDL Ratio 2.71 08/09/20 05:14 Lipase 2981 U/L (73-393) H 08/15/20 05:17 Home Medications: Folic Acid 1 mg PO DAILY #90 tablet 08/15/20 Nicotine [Nicoderm*] 21 mg TD DAILY #30 patch.td24 08/15/20 Pantoprazole [Protonix Tab] 40 mg PO DAILY #30 tab 08/15/20 Thiamine HCl [Vitamin B-1*] 100 mg PO DAILY #90 tablet 10/28/20 New Medications: Folic Acid 1 mg PO DAILY #90 tablet Nicotine [Nicoderm*] 21 mg TD DAILY #30 patch.td24 Pantoprazole [Protonix Tab] 40 mg PO DAILY #30 tab Thiamine HCl [Vitamin B-1*] 100 mg PO DAILY #90 tablet Patient Discharge Instructions: 1. Recommend follow up with a PCP to establish care and follow up this hospitalization. 2. Patient presented with abdominal pain, nausea and vomiting. This was secondary to alcoholic pancreatitis. Patient also had high pony tree me a, hypokalemia and hypophosphatemia. This was likely related to her alcohol abuse. Triglyceride level unremarkable. CT scan showed no significant mass or significant inflammation but lipase levels were greater than 10,000. During the course of her stay her condition improved. Her diet was advanced slowly. At discharge she is without significant nausea, vomiting and abdominal pain. Lipase levels now in the 2000 range. Case discussed with GI. No significant intervention required at this time. Patient has been counseled extensively on the importance of alcohol cessation. Patient understands the risks and recurrent pancreatitis if she continues. Patient plans to quit. At discharge patient without significant nausea, vomiting or abdominal pain. She will continue with folic acid 1 mg daily and thiamine 100 mg daily. At discharge continue with alcohol cessation. Recommend to establish care with GI in the future to follow up this hospitalization. Recommend to recheck lab-CMP with lipase level in 1-2 weeks monitor resolution of elevated lipase level. Education on pancreatitis, alcohol cessation addressed in detail. 3. Patient also with history of tobacco abuse. Patient was given nicotine patch. Recommend to continue nicotine cessation. Nicotine patch will be provided at discharge. 4. Patient with elevated liver function initially. This was likely related to her alcohol abuse. CT scan did reveal mild fatty liver. This has improved and the liver function test now back to baseline. Will provide education on fatty liver. As mentioned above recommend to discontinue alcohol entirely. 5. Patient may have underlying GERD. At discharge patient will continue with Protonix 40 mg daily. Recommend follow up with GI as an outpatient to further evaluate and treat. Diet: GI soft Activity: Ad hans Followup: Unknown,U [Primary Care Provider] - Time spent managing pt's care (in minutes): 55
[2020-08-15] MEDS: HYDROCODONE/APAP 7.5/325 MG TAB PO PRN (10:29)
[2020-08-15 12:43] VITALS: BP 160/92; TEMP 98.3
== END 2020-08-15 13:13 | disposition home or self-care (01) | DRG 440 ==
LOC: ER 08:20 → ERHOLD 11:28 → 2ND 14:17
PROVIDERS: ADMIT Hospitalist; ATTEND Family Medicine
DX: K85.20 Alcohol induced acute pancreatitis without necrosis or infection (principal); F10.10 Alcohol abuse, uncomplicated; F17.210 Nicotine dependence, cigarettes, uncomplicated; E87.6 Hypokalemia; K21.9 Gastro-esophageal reflux disease without esophagitis; K70.0 Alcoholic fatty liver; E83.39 Other disorders of phosphorus metabolism; Z90.49 Acquired absence of other specified parts of digestive tract; Z79.899 Other long term (current) drug therapy; Z20.828 Contact with and (suspected) exposure to other viral communicable diseases
CPT/HCPCS: 36415; 71045; 74177; 80048; 80053; 80061; 80076; 80307; 80320; 81003; 83605; 83690; 83735; 83880; 84100; 84132; 84484; 85025; 85610; 85730; 87804; 93005; 96365; 96366; 96375; 99285; J1650; J2270; J2405; J3411; J3475; J3480; J7030; J7040; Q9967; U0003